=== PATIENT | female | born 1980 | race Caucasian/White ===

== ENCOUNTER 2024-09-19 04:46 | Emergency (ER) | payer SELFPAY ==
[2024-09-19 04:47] VITALS: BMI 31.8
[2024-09-19 04:54] VITALS: BP 107/70
--- NOTE | 2024-09-19 05:01 | ED.GENMED ---
History of Present Illness
<Casper Marino, DO - Last Filed: 09/19/24 22:04>
General
Chief Complaint: Abdominal Pain
Source: patient
Exam Limitations: none
Time Seen by Provider: 09/19/24 04:55
History of Present Illness
History of Present Illness:
See MDM
Past History
<Casper Marino, DO - Last Filed: 09/19/24 22:04>
Past History
ED Past Medical History: None
ED Past Surgical History:
Social History
Tobacco: Non-smoker
Alcohol: None
Phy Exam
<Casper Marino, DO - Last Filed: 09/19/24 22:04>
Physical Exam
Physical Exam:
See MDM
Course
<Casper Marino, DO - Last Filed: 09/19/24 22:04>
Orders/Labs/Results
Orders:
Orders
09/19/24 04:59
Morphine Sulfate 4 mg IV NOW STA
Ondansetron Injectable [Zofran] 4 mg IV NOW STA
09/19/24 05:00
CT Abd/pelvis W Iv Cont Urgent
Comment:
Reason For Exam: General abd pain worse in RLQ
09/19/24 05:01
Test Result ONCE
09/19/24 05:29
Complete Blood Count/With Diff Urgent
Comprehensive Metabolic Panel Urgent
HCG, Serum Qualitative Screen Urgent
Lipase Urgent
09/19/24 06:15
Urinalysis Reflex To Culture Urgent
Date Specimen was Collected: 09/19/24
Time Specimen was Collected: 06:03
Abnormal Lab Results
09/19/24
05:29
WBC 14.8 H 10^3/uL
(4.8-10.8)
MCH 26.6 L pg
(27.0-31.0)
MCHC 32.1 L g/dL
(33.0-37.0)
MPV 10.5 H fL
(7.4-10.4)
Abs Immat Gran (auto) 0.1 H 10^3/uL
(0-0.05)
Absolute Neuts (auto) 12.2 H 10^3/uL
(1.4-6.5)
Absolute Monos (auto) 0.7 H 10^3/uL
(0.1-0.6)
Neutrophils % 82.8 H %
(42.2-75.2)
Lymphocytes % 10.9 L %
(20.5-51.1)
Carbon Dioxide 21 L mmol/L
(22-30)
Glucose 131 H mg/dl
(70-99)
AST 37 H U/L
(14-36)
ALT 43 H U/L
(0-35)
09/19/24 05:29
09/19/24 05:29
Vital Signs
Initial and Last Documented VS:
Initial Vital Signs
Temp Pulse Resp BP Pulse Ox
97.5 F 76 22 107/70 97
09/19/24 04:54 09/19/24 04:54 09/19/24 04:54 09/19/24 04:54 09/19/24 04:54
Last Documented Vital Signs
Temp Pulse Resp BP Pulse Ox
97.5 F 74 18 115/65 98
09/19/24 04:54 09/19/24 07:30 09/19/24 07:30 09/19/24 07:30 09/19/24 07:30
<Portillo Pérez MD - Last Filed: 09/19/24 07:48>
Orders/Labs/Results
Orders:
Orders
09/19/24 04:59
Morphine Sulfate 4 mg IV NOW STA
Ondansetron Injectable [Zofran] 4 mg IV NOW STA
09/19/24 05:00
CT Abd/pelvis W Iv Cont Urgent
Comment:
Reason For Exam: General abd pain worse in RLQ
09/19/24 05:01
Test Result ONCE
09/19/24 05:29
Complete Blood Count/With Diff Urgent
Comprehensive Metabolic Panel Urgent
HCG, Serum Qualitative Screen Urgent
Lipase Urgent
09/19/24 06:15
Urinalysis Reflex To Culture Urgent
Date Specimen was Collected: 09/19/24
Time Specimen was Collected: 06:03
Abnormal Lab Results
09/19/24
05:29
WBC 14.8 H 10^3/uL
(4.8-10.8)
MCH 26.6 L pg
(27.0-31.0)
MCHC 32.1 L g/dL
(33.0-37.0)
MPV 10.5 H fL
(7.4-10.4)
Abs Immat Gran (auto) 0.1 H 10^3/uL
(0-0.05)
Absolute Neuts (auto) 12.2 H 10^3/uL
(1.4-6.5)
Absolute Monos (auto) 0.7 H 10^3/uL
(0.1-0.6)
Neutrophils % 82.8 H %
(42.2-75.2)
Lymphocytes % 10.9 L %
(20.5-51.1)
Carbon Dioxide 21 L mmol/L
(22-30)
Glucose 131 H mg/dl
(70-99)
AST 37 H U/L
(14-36)
ALT 43 H U/L
(0-35)
09/19/24 05:29
09/19/24 05:29
Vital Signs
Initial and Last Documented VS:
Initial Vital Signs
Temp Pulse Resp BP Pulse Ox
97.5 F 76 22 107/70 97
09/19/24 04:54 09/19/24 04:54 09/19/24 04:54 09/19/24 04:54 09/19/24 04:54
Last Documented Vital Signs
Temp Pulse Resp BP Pulse Ox
97.5 F 74 18 115/65 98
09/19/24 04:54 09/19/24 07:30 09/19/24 07:30 09/19/24 07:30 09/19/24 07:30
<Casper Marino, DO - Last Filed: 09/19/24 22:04>
MDM/Problems Addressed
Differential Diagnosis Includes:
HPI and MDM Narrative:
44-year-old female presenting with generalized abdominal pain. states that she has been up all night and Motrin is not helping. He is concerned about possible appendicitis. Patient comfortable. Has abdominal pain that is worse in the
right lower quadrant. Will give pain medicine and obtain CT
Physical exam
General: Mildly uncomfortable
HEENT: protecting airway
Neck: appears supple
CV: No evidence of cyanosis
Resp: No accessory muscle use
Abd: Non-distended. Generalized tenderness that is worse in right lower quadrant
Extremities: No deformities
Neuro: alert
Psych: Normal affect
Skin: Intact
Problems Addressed including Acute and Chronic Conditions affecting care:
1. Abdominal pain
Acuity: acute
Prognosis: stable
Details: Given location of pain, will obtain CT to rule out acute appendicitis
Differential Diagnosis (but not limited to): Acute appendicitis, constipation, colitis
Testing considered: Abdominal ultrasound
Drug therapy (if applicable): OTC meds, please see d/c instruction regarding Rx drugs
Amount and/or Complexity of Data Reviewed
Clinical info obtained from: Patient
External data reviewed: N/A
Labs I independently reviewed (but not limited to): Mild leukocytosis
Radiology: The CT scan was personally and independently reviewed. In addition, official CT report reviewed.
Pulse Ox: not hypoxic
EKG independently reviewed: N/A
Sausage Machine Operator: N/A
Critical Care: N/A
Risk of Complication:
Social Determinants of health: Good social support
Discussed with other providers: N/A
Escalation of Care includes Admit/Obs: After being observed in the Emergency Department, pt stable for discharge.
Occasional wrong word or 'sound a like' substitutions may have occurred due to the inherent limitations of voice recognition software. Read the chart carefully and recognize, using context, where substitutions have occurred.
<Casper Marino DO - Last Filed: 09/19/24 22:04>
*Critical Care Note
Total Time (30-74mins, 75-104mins- exclusive of procedures): Not Applicable
<Portillo Pérez MD - Last Filed: 09/19/24 07:48>
Update Note
Update Note:
UPDATE (Portillo Pérez MD)
I have seen and evaluated the patient after signout and reviewed all labs and imaging.
Focused HPI: 43-year-old female with no reported chronic medical issues who presents to the ER with her for evaluation of abdominal pain. Apparently symptoms started last night around midnight and had been constant. Mild nausea no
vomiting, no diarrhea. No vaginal bleeding or urinary symptoms. She was treated with pain medication here and symptoms have resolved. Surgical history of .
Physical exam: Awake alert not in distress. Resting comfortably. Vital signs normal. Abdomen soft, mild tenderness across the lower abdomen but no peritoneal signs. No masses appreciated.
Medical Decision Makin-year-old female presents for evaluation of lower abdominal pain that lasted for few hours resolved with pain medication here in the emergency room. She had lab work which was significant for slight leukocytosis to 14.8,
CMP showed marginal elevation of AST and ALT but normal lipase, normal T. bili. hCG negative. Urinalysis no infection. CT abdomen pelvis shows cholelithiasis but no cholecystitis, normal appendix. No other acute pathology. Possible patient had
biliary colic or passed a gallstone although based on the location of her pain and tenderness this seems somewhat less likely. Could be a mild constipation or gas pains. At this point no clear indication for hospital admission with pain improved,
no fever. I had a long discussion with patient and �explained that especially in the very acute stages symptoms can evolve and so I advised them that if symptoms return/worsen or she develops any fever or any other symptoms that she should
return to be reassessed. They feel very comfortable with this plan. All questions answered.
ED Attending Note
<Casper Marino, DO - Last Filed: 09/19/24 22:04>
-
Portions of this chart may have been created with voice recognition software.� Occasional wrong word or��sound alike� substitutions may have occurred due to the inherent limitations of voice recognition software.
Discharge Plan
Departure
Patient Disposition: Home (Routine Discharge)
Date of Disposition: 09/19/24
Time of Disposition: 07:40
Patient with high blood pressure during this ER visit?: No
Discharge Problem:
Abdominal pain
Instructions: Abdominal Pain
Referrals:
NONE,* [Family Provider] -
Activity Restrictions/Additional Instructions:
You were seen in the emergency room for abdominal pain. Your symptoms improved in the emergency room. You were evaluated with blood work and a CT scan. Your blood work did show a slight elevation of your white blood cell count but your CT scan
showed no serious infection. You did have gallstones on your CT scan. It is possible that this is related to gallstones or something you ate or some constipation, however things can change or develop over time and so you should monitor your
symptoms very closely. If your symptoms are persisting over the next few days, or if they are getting worse at any point in time, or if you develop any fevers, vomiting or any other concerning symptoms please return immediately to the emergency
room to be reassessed.
Thank you for visiting the Emergency Department at [facility].
1. Please schedule a follow up appointment as directed. Call first thing tomorrow morning to make an appointment.
2. If indicated, please take your medications as instructed and indicated on discharge paperwork.
3. If any of your symptoms do not improve, or persist, or become more severe within 6-12 hours, please return to the emergency department for further care.
4. Please return to the emergency department if you develop a headache, neck pain/stiffness, fever greater than 100.4F, chest pain, shortness of breath, persistent nausea, vomiting, slurred speech, difficulty walking, numbness/tingling, weakness,
signs of infection or any other symptoms that are worrisome to you.
Please call [phone] if you have any questions.
Interventions
Interventions:
*Risk Screen - Suicide Last Done: 09/19/24 04:48
*General Assessment Last Done: 09/19/24 05:27
*Neglect/Abuse Screening Last Done: 09/19/24 05:27
ED- Fall Risk Assessment Last Done: 09/19/24 05:27
*ED COVID-19 Vaccine History Last Done: 09/19/24 05:27
*Nursing Disposition Last Done: 09/19/24 07:50
GN-Lxylfm-Hueljwrdcv Assessment Last Done: 09/19/24 05:23
Discharge Date and Time
Discharge Date/Time: 09/19/24 07:51
Print Language: Hungarian
[2024-09-19 05:22] VITALS: BP 107/69
[2024-09-19] MEDS: MORPHINE SULFATE 4 MG IV (05:24)
[2024-09-19] MEDS: ZOFRAN 4 MG IV (05:24)
[2024-09-19 05:39] LABS: % Basophils 0.4 % (0-2); % Eosinophils 0.9 % (0-6); % Immature Granulocytes 0.3 % (0-0.5); % Lymphocytes 10.9 % (20.5-51.1); % Monocytes 4.7 % (1.7-9.3); % Neutrophils 82.8 % (42.2-75.2); Absolute Basophils 0.1 10^3/uL (0-0.2); Absolute Eosinophils 0.1 10^3/uL (0-0.7); Absolute Immature Granulocytes 0.1 10^3/uL (0-0.05); Absolute Lymphocytes 1.6 10^3/uL (1.2-3.4); Absolute Monocytes 0.7 10^3/uL (0.1-0.6); Absolute Neutrophils 12.2 10^3/uL (1.4-6.5); Hematocrit 39.2 % (37.0-47.0); Hemoglobin 12.6 g/dL (12.0-16.0); Mean Corp Hgb Conc. 32.1 g/dL (33.0-37.0); Mean Corpuscular Hgb 26.6 pg (27.0-31.0); Mean Corpuscular Volume 82.7 fL (81.0-99.0); Mean Platelet Volume 10.5 fL (7.4-10.4); Nucleated Red Blood Cells % 0 %; Platelet Count 297 10^3/uL (130-400); Red Blood Cell Count 4.74 10^6/uL (4.20-5.40); Red Cell Dist. Width 13.1 % (11.5-14.5); White Blood Cell Count 14.8 10^3/uL (4.8-10.8)
[2024-09-19 05:46] LABS: HCG, Serum Qualitative Screen Negative
[2024-09-19 05:47] LABS: ALT (SGPT) 43 U/L (0-35); AST (SGOT) 37 U/L (14-36); Albumin 4.4 g/dl (3.5-5.0); Alkaline Phosphatase 95 U/L (38-126); Blood Urea Nitrogen 14 mg/dl (7-17); Calcium 9.3 mg/dl (8.4-10.2); Carbon Dioxide 21 mmol/L (22-30); Chloride 105 mmol/L (98-107); Estimated Creatinine Clearance 103 ml/min; Glucose 131 mg/dl (70-99); Lipase 210 U/L (23-300); Potassium 4.1 mmol/L (3.5-5.1); Sodium 140 mmol/L (135-145); Total Protein 7.3 g/dl (6.3-8.2); eGFR > 60.00
[2024-09-19 06:00] VITALS: BP 101/71
[2024-09-19 06:21] LABS: Urine Albumin Negative (Neg - Trace); Urine Bilirubin Negative (Negative); Urine Character Clear (Clear); Urine Color Yellow; Urine Glucose Negative (Negative); Urine Ketone Negative (Negative); Urine Leukocyte Negative (Negative); Urine Nitrite Negative (Negative); Urine Occult Blood Negative (Negative); Urine Urobilinogen Negative (Neg - 1+)
[2024-09-19 07:30] VITALS: BP 115/65
== END 2024-09-19 07:51 | disposition home or self-care (01) ==
LOC: EMR 04:46
PROVIDERS: EMERGENCY PHYSICIAN Student in an Organized Health Care Education/Training Program
DX: R10.30 Lower abdominal pain, unspecified (principal)
CPT/HCPCS: 99285; 96374; 96375; 74177; 80053; 81003; 83690; 84703; 85025; Q9967